=== PATIENT | female | born 1995 | race African-American/Black ===

== ENCOUNTER 2020-10-23 09:12 | Emergency (ER) | payer SELFPAY ==
[~2020-10-23] VITALS: Ht 180.3 cm; Wt 88.5 kg
[2020-10-23] MEDS ORDERED: CEFTRIAXONE 1 GM VIAL IM ONE (09:30)
[2020-10-23] MEDS ORDERED: ONDANSETRON HCL 4 MG ORAL DISINTEGRATING TAB PO ONE (09:30)
[2020-10-23] MEDS ORDERED: CLEOCIN HCL300 MG PO (09:34)
[2020-10-23] MEDS ORDERED: DOXYCYCLINE HY100 MG PO (09:34)
[2020-10-23] MEDS ORDERED: CEFTRIAXONE 500 MG VIAL IM ONE (09:45)
[2020-10-23] MEDS ORDERED: METRONIDAZOLE 500 MG TAB PO ONE (10:00)
[2020-10-23 10:20] LABS: CLARITY,URINE CLOUDY (CLEAR); COLOR,URINE YELLOW (YELLOW)
[2020-10-23 10:21] LABS: KETONES,URINE TRACE (NEGATIVE); LEUKOCYTE ESTERASE ,URINE TRACE (NEGATIVE); NITRITE,URINE NEGATIVE (NEGATIVE); PROTEIN,URINE DIPSTICK TRACE (NEGATIVE); URINE UROBILINOGEN 0.2 mg/dL (0.2 - 1)
[2020-10-23 10:27] LABS: BACTERIA,URINE MODERATE /HPF; EPITHELIAL CELLS,URINE MODERATE /LPF; WBC,URINE (MAN) 0-5 /HPF (0-5)
[2020-10-23 12:14] VITALS: BP 132/71
== END 2020-10-23 10:30 | disposition home or self-care (01) ==
LOC: ER 09:16
DX: N76.4 Abscess of vulva (principal); R50.9 Fever, unspecified
CPT/HCPCS: 81001; 81025; 99282; J0696; Q0162